=== PATIENT | male | born 1975 | race Caucasian/White ===

== ENCOUNTER → 2016-12-16 | Outpatient (CLI) | payer BC ==
--- NOTE | 2016-12-18 16:27 | MRI ---
EXAM DATE: 12/16/2016 7:00 AM CDT. PROCEDURE: MR CERVICAL SPINE WITHOUT IV CONTRAST. INDICATION: PAIN. COMPARISON: None. TECHNIQUE: Multiplanar T1 and T2 MRI images of the cervical were acquired without administration of intravenous contrast. FINDINGS: The cervical vertebral bodies demonstrate normal height and alignment. Intervertebral disc space height is relatively well-preserved. Normal marrow signal. The cervical cord demonstrates normal signal and morphology. C2-C3: No significant disc bulge. No spinal canal or neural foraminal narrowing. C3-C4: No significant disc bulge. No spinal canal or neural foraminal narrowing. C4-C5: No significant disc bulge. No spinal canal or neural foraminal narrowing. C5-C6: There is a left subarticular disc extrusion with foraminal extension indenting the left ventral aspect of the cord and effacing the left lateral recess. No significant foraminal stenosis. C6-C7: Left eccentric disc bulge with a small posterior annular fissure. Disc material indents the ventral cord resulting in mild spinal canal narrowing. No significant foraminal stenosis. C7-T1: No significant disc bulge. No spinal canal or neural foraminal narrowing. The soft tissues of the neck are unremarkable. IMPRESSION: Left subarticular disc extrusion at C5-C6 indents the left ventral cord and causes effacement of the left lateral recess. Left eccentric disc bulge at C6-C7 indents the ventral cord causing mild spinal canal narrowing. Small posterior annular fissure at C6-C7 may contribute to pain. Electronically signed by: Choco Adkins MD 12/18/2016 4:26 PM CDT
== END | disposition home or self-care (01) ==
LOC: MRI 06:50
PROVIDERS: ATTEND Family Medicine
DX: M54.12 Radiculopathy, cervical region (principal)

== ENCOUNTER → 2019-09-20 | Outpatient (CLI) | payer BC | LOC: GMA MATASK 10:28 | PROVIDERS: ATTEND Family Medicine | DX: R53.83 Other fatigue (principal) ==

== ENCOUNTER → 2019-09-21 | Outpatient (CLI) | payer BC ==
--- NOTE | 2019-09-21 16:27 | US ---
EXAM DESCRIPTION: Abdomen,Complete: Ultrasound. CLINICAL HISTORY: 43 years MaleABNORMAL RESULTS OF LIVER FUNCTION STUDIES COMPARISON: None Available. TECHNIQUE: Transabdominal scanning: grayscale and Doppler modes. FINDINGS: Gallbladder: Normal size and echogenicity with no intraluminal stones or sludge. Wall thickness 2.1 mm with no fluid. Nontender with transducer pressure. Common bile duct: 4.6 mm normal caliber. Liver: 13.7 cm Long axis right lobe. No focal lesions. Normal caliber of the ducts. Hepatopedal flow in the portal vein with caliber 7 mm at the shiv hepatis. Smooth capsule with no ascites.. Pancreas: Normal size and echogenicity with duct not seen. Abdominal aorta: Normal caliber from the proximal segment to the distal bifurcation. IVC: visualized; normal caliber. Spleen normal echogenicity; long axis measurement is 12.8 cm. Right kidney: 10.5 cm long axis with volume 146.5 mL. Normal cortical echogenicity and cortical thickness. No echogenic stones or hydronephrosis. Left kidney: 9.9 cm long axis with volume 105.2 mL. Minimally increased cortical echogenicity with minimal thinning. No echogenic stones or hydronephrosis. IMPRESSION: Normal ultrasound of the abdomen with no organomegaly. No gallstones. Normal intrahepatic and extrahepatic ducts. No ascites. Left kidney is smaller than the right kidney. Electronically signed by: Venkata Gonzalez MD 09/21/2019 4:25 PM CDT
== END ==
LOC: US 12:47
PROVIDERS: ATTEND Family Medicine
DX: R94.5 Abnormal results of liver function studies (principal)